=== PATIENT | female | born 1955 | race Caucasian/White ===

== ENCOUNTER 2025-10-25 13:35 | Outpatient (CLI) | payer OTHER, MEDICARE, SELFPAY ==
--- NOTE | 2025-10-25 14:33 | ECG_ITS ---
Test Date: 2025-10-25 14:50:17 Measurements Intervals [place] Rate: 57 P: 57 [place]: 141 QRS: 7 QRSD: 95 T: 22 QT: 429 QTc: 419 Interpretive Statements SINUS BRADYCARDIA CONSIDER INFERIOR INFARCT, AGE INDETERMINATE NONSPECIFIC T-WAVE ABNORMALITY- ANTERIOR LEADS BASELINE ARTIFACT- I, II, III, AVR, AVL, AVF ABNORMAL ECG No previous ECG available for comparison Electronically Signed On 10-25-2025 14:59:24 JELLY MAKER by Cristian Fox D.O.
[2025-10-25 15:41] LABS: Hematocrit 37.9 % (37.0-47.0); Hemoglobin 12.3 g/dL (12.0-15.0); Immature Granulocyte Percent A 0.4 % (0-0.5); Lymphocytes Absolute Auto 2.26 K/mm3 (0.9-3.2); Mean Corpuscular HGB Conc 32.5 g/dl (32-36); Mean Corpuscular Hemoglobin 30.2 pg (26-34); Mean Corpuscular Volume 93.1 fl (80-100); Nucleated Red Blood Cells Absolute Auto 0.000 K/mm3 (0.0-0.012); Nucleated Red Blood Cells Perc 0.0 % (0.0-0.2); Platelet Count Result 316 k/mm3 (150-375); Red Blood Count 4.07 M/mm3 (4.2-5.4); White Blood Count 8.0 K/mm3 (4.5-10.0)
[2025-10-25 15:49] LABS: Hemoglobin A1C 5.8 % (<5.7)
[2025-10-25 16:02] LABS: Albumin Level 4.0 g/dL (3.5-5.1); Anion Gap 7 mmol/L (4-12); Blood Urea Nitrogen 21 mg/dL (7-17); Calcium 9.0 mg/dL (8.4-10.2); Carbon Dioxide 25 mmol/L (22-30); Chloride 108 mmol/L (98-107); Estimated Glomerular Filt Rate > 60; Glucose 84 mg/dL (65-110); Potassium 4.1 mmol/L (3.4-5.0); Sodium 140 mmol/L (137-145)
--- OUTSIDE RECORDS SUMMARY | 2025-10-25 16:23 | XMS_ITS | Clinical Summary ---
Author Organization [facility] Address [address] [address] Care Team Providers Care Survey Field Technician Name Role Phone Jarett Josue MD Primary Care Provider [phone] Source Comments [facility],non-owned Affiliates and Associated Physician Practices is amultiple site organization consisting of ambulatory clinics and hospital sitesin [place], [place], [place] and [place]. This disclosure is being madepursuant to the Care Everywhere program and may not contain all information available regarding this patient. Last updated 18.[facility] Allergies Active Allergy Reactions Criticality Noted Date Comments Codeine 01/10/2017 Medications * Be aware that medications may not be up to date on this document. Alwaysverify current medications with the patient. benzonatate (TESSALON) 200 MG capsule Take 1 capsule by mouth 3 times daily as needed for Cough 30 capsule 12/05/2019 Active Social History Tobacco Use Types Packs/Day Years Used Date Smoking Tobacco: Never Smokeless Tobacco: Never Comments No Sex and Gender Information Value Date Recorded Sex Assigned at Not on file Legal Sex Female 9:02 AM COMPANY DANCER Gender Identity Not on file Sexual Orientation Not on file Last Filed Vital Signs Vital Sign Reading Time Taken Comments Blood Pressure 124/72 12/05/2019 8:59 AM COMPANY DANCER Pulse 64 12/05/2019 8:59 AM COMPANY DANCER Temperature 36.7 C (98.1 F) 12/05/2019 8:59 AM COMPANY DANCER Respiratory Rate 18 12/05/2019 8:59 AM COMPANY DANCER Oxygen Saturation 98% 12/05/2019 8:59 AM COMPANY DANCER Inhaled Oxygen Concentration - - Weight 73.9 kg (163 lb) 12/05/2019 8:59 AM COMPANY DANCER Height 167.6 cm (5' 6) 12/05/2019 8:59 AM COMPANY DANCER Body Mass Index 26.31 12/05/2019 8:59 AM COMPANY DANCER Plan of Treatment Health Maintenance Due Date Last Done Comments BONE DENSITY TESTING 1955 COLOGUARD (AGES 45-75) - COL ON CA SCREENING 1955 COLON MONITORING 1955 COLONOSCOPY - COLON CA SCREENING 1955 CT COLONOGRAPHY - COLON CA SCREENING 1955 Colorectal Cancer Screening 1955 FIT - COLON CA SCREENING 1955 FLEX SIG - COLON CA SCREENING 1955 LIPID TESTING 1955 MAMMOGRAM 1955 HEPATITIS C SCREENING 10/25/1971 DTAP/TDAP/TD VACCINES (1 - Tdap) 1972 PNEUMOCOCCAL VACCINE 50+ (1 of 1 - PCV) 2003 ZOSTER VACCINE (1 of 2) 2003 SCREENING FOR DIABETES 12/05/2019 DEPRESSION SCREENING 11/18/2024 COVID-19 VACCINE (1 - 2024-2 6 season) 2025 INFLUENZA VACCINE (#1) 2025 Respiratory Syncytial Virus (RSV) Vaccine Pt: or over 60 yrs (1 - 1-dose 75+ series) 2028 HEPATITIS B VACCINE Aged Out No longe r eligible based on patient's age to complete this topic HIB VACCINE Aged Out No longer eligi ble based on patient's age to complete this topic HPV VACCINE Aged Out No longer eligi ble based on patient's age to complete this topic MENINGOCOCCAL (Group B) VACC INE SHARED DECISION-MAKING Aged Out No longer eligibl e based on patient's age to complete this topic MENINGOCOCCAL GROUPS A/C/Y/W VACCINE Aged Out No longer eligible b ased on patient's age to complete this topic Insurance MEDICARE [facility] Care Teams Survey Field Technician Relationship Specialty Start Date End Date Jarett Josue MD [address] [place] [address] PCP - General Family Medicine 01/10/17
== END 2025-10-25 13:36 | disposition home or self-care (01) ==
PROVIDERS: PCP Family Medicine; Visit Provider Orthopaedic Surgery
DX: Z01.818 Encounter for other preprocedural examination (principal); M17.12 Unilateral primary osteoarthritis, left knee; R94.31 Abnormal electrocardiogram [ECG] [EKG]
CPT/HCPCS: 80048; 80307; 82040; 83036; 85025; 87081; 93005

== ENCOUNTER 2025-11-16 01:07 | Day surgery (SDC) | payer OTHER, MEDICARE, SELFPAY ==
--- NOTE | 2025-10-25 13:48 | PC.NURSE ---
[facility] has started construction of its new state of the art ER which will open Spring 2026. With this, we anticipate parking may be a challenge for some our surgical patients and families. Parking spaces are limited but are available for all Surgical, obstetrics, and ER patients sharing this lot. If you arrive and find you are having a hard time finding a parking space, please note that we understand the challenges, please drive around the hospital and park near Hospital Entrance 1. When you enter this entrance, you can ask a volunteer to direct or take you back to the surgical waiting area to check in. We appreciate everyone?s understanding of these expected challenges while we build for your future. Report to the Outpatient Waiting Room, entrance under the green pavilion located off [address], at time _6 AM on date _11/16/25 . Planned Procedure Time: __7:30 AM .? Time changes happen often and if your time is changed the preop area will call you the afternoon before. - You and your visitor will be asked to self-screen and do not enter if you have any COVID symptoms. Please call surgeon if you need to reschedule. - A mask is optional within the hospital at this time. Patients may have clear liquids (water, carbonated beverages, clear teas, apple juice) until 3 hours prior to surgery( 4:30 AM) with a maximum of 20 ounces. - No food from midnight until time of surgery and no smoking, or chewing tobacco (or any form of nicotine). No chewing gum, candy or mints. Take only the following medications with a SIP of water on the morning of surgery: ___LEVOTHYROXINE DO NOT STOP ANY OF YOUR OTHER PRESCRIPTION MEDICATIONS PRIOR TO SURGERY EXCEPT THE FOLLOWING Hold all vitamins and supplements for 3 days per anesthesiologist. Medications to discontinue per physician IBUPROFEN HOLD 7 DAYS PRE OP PER DR ROD Date to take last dose____11/08/25 Please no make-up, nail citizen of [place], hairspray, perfume, deodorant, or body powder the day of surgery.? No jewelry (including any body piercings) or valuables the day of surgery, leave them at home.? Please take a shower or bath the night before, or the morning of, surgery with an antibacterial soap.? Wear comfortable, loose fitting clothing.? Children are encouraged to wear pajamas. - Jewelry must be removed prior to entering the operating room.? Rings and piercings that are not removed may be cut off. - The hospital will not accept responsibility for valuables.? - Please leave all valuables, including medications, at home the day of surgery. If you are going home after surgery, a licensed substitute bus driver must drive you home.? - NO public transportation without another adult if you receive anesthesia. - We recommend that an adult stay with you for 24 hours following discharge. - We also recommend that you do not drive, make important decision, drink alcoholic beverages, or take any drugs that were not prescribed by your health care provider for at least 24 hours after your discharge time. For Pediatric surgeries, we recommend two adults accompany the child home. Follow any additional instructions given to you from your surgeon. VERBAL AND WRITTEN instructions given to _PATIENT and asked if any additional questions and then verbalized understanding. Patient advised to call surgeon office or pre surgery nurse liaison [phone] if any additional questions.
[2025-10-25 13:50] VITALS: BMI 26.2
[2025-10-25 14:28] VITALS: BP 157/70; PULSE 62; RESP 18; TEMP 37.1; O2SAT 98
--- NOTE | 2025-11-15 12:54 | PM.IMHP2 ---
H&P: HPI History of Present Illness Date/Time: 11/15/25 12:54 Chief Complaint: Left knee DJD he Narrative: 70-year-old female presents today for a left total knee arthroplasty. Patient has been having severe symptoms in the knee for years. She has been taking [id number] ibuprofen 600 mg on as-needed basis. She has had her right knee replaced other facilities in the past. 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 She declined cortisone injection, she does not feel it is going to help. She would rather proceed at this point with total knee arthroplasty. She is having rather severe pain on a daily basis. Physical exam: 70-year-old female alert pleasant. BMI is 26.6. Left knee range of motion is from 18-95 degrees. No obvious effusion. Moderate medial joint line tenderness and moderate pain with patellofemoral grind. There is no laxity to varus valgus stress. Hip range of motion is full without discomfort. There is no edema in lower extremities. Skin is all normal. 2+ posterior tibial artery pulse palpable. Absent dorsalis pedis pulse. X-rays: X-rays demonstrate advanced medial compartment osteoarthritis with mild varus alignment. Impression: 70-year-old female who has [id number] medial compartment osteoarthritis left knee. She also has severe limitations with range of motion. He has pain on daily basis which she is limiting her daily activities as well. Patient feels this point she would like to proceed with total knee arthroplasty rather than continue to live with the arthritis pain and disability. Surgical procedures well as the risks and complications were discussed in detail all questions were answered we will proceed. She will see her primary care doctor for pre-surgical clearance. She will avoid her ibuprofen and any other aspirin products 1 week prior to surgery. Her nasal swab was negative. Hemoglobin 12.3 and platelets were 316. Chem panel was all within normal limits creatinine 0.89. Patient's EKG showed bradycardia and possible inferior infarct. She is undergone a stress test which showed ejection fraction at 57% and normal left ventricular function. Stress portion showed no ischemia or defect. Patient has been cleared from cardiology. [facility], [facility] Surgical History Surgical History History of knee surgery right knee replaced History of hip surgery both hips replaced Family History Family History Sibling DVT (deep venous thrombosis) Social History Social History (Updated 10/29/25 @ 09:27 by Vania Calderon [facility]) Smoking status: Never smoker Additional smoking assessment comments: DENIES ANY FORM OF TOBACCO USE Alcohol intake: never Substance use: never Lack of Transportation: No Lack of Food: Never True Current Housing: I Have Housing Concerned About Future Housing: No Difficulty Paying Gas/Electric Bills: No Difficulty Paying for Meds: No Currently Unemployed: No Education: High School Diploma/GED Difficulty w/ Childcare or Family Care: No Living arrangements: with family Spiritual care concerns: No Meds Home Medications and Allergies Home Medications ?Medication ?Instructions ?Recorded ?Confirmed ?Type ibuprofen 200 mg tablet (Advil) 600 mg PO PRN 10/25/25 10/29/25 History levothyroxine 75 mcg tablet 75 mcg PO DAILY 10/25/25 10/29/25 History Allergies Allergy/AdvReac Type Severity Reaction Status Date / Time codeine AdvReac Mild Unknown Verified 10/29/25 08:30 prednisone AdvReac Mild Unknown Verified 10/29/25 09:30
[2025-11-16] VITALS (15 sets, daily range): BP systolic 125–151; BP diastolic 47–79; PULSE 51–96; RESP 10–18; TEMP 36.1–36.7; O2SAT 95–100; BMI 25.9
--- NOTE | ~2025-11-16 | XR_ITS ---
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 Subcutaneous gas with fluid and air in the joint are consistent with recent surgery. No evidence of periprosthetic fracture. IMPRESSION: 1. Recent left total knee arthroplasty. Reviewed, dictated and finalized at location O. 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
--- OUTSIDE RECORDS SUMMARY | 2025-11-16 01:09 | XMS_ITS | Clinical Summary ---
Author Organization [address] [address] Care Team Providers Care Weights And Measures Sealer Name Role Phone Jarett Josue MD Primary Care Provider [phone] Allergies No known active allergies Encounters Date Type Department Care Team Description 11/04/2025 8:15 AM GREASE MACHINE WORKER Ancillary Procedure [facility] Medical Group Cardiology at [address] [place] [id number] Abnormal EKG; Pre-operative cardiovascular examination 11/04/2025 Orders Only [facility] Medical [facility] Cardiology at [address] [address] Provider, MD Kim from Last 3 Months Social History Tobacco Use Types Packs/Day Years Used Date Smoking Tobacco: Never Assessed Personal Safety Answer Date Recorded Getting School Help Needed Not on file 01/30 Comments Unknown Sex and Gender Information Value Date Recorded Sex Assigned at Not on file Legal Sex Female 3:48 AM GREASE MACHINE WORKER Gender Identity Not on file Sexual Orientation Not on file Plan of Treatment Not on file Procedures Procedure Name Priority Date/Time Associated Diagnosis Comments NM MPI SPECT (REST AND/OR STRESS) MULTIPLE STUDIES Schedule Routine, Read Routine (OP Routine) 11/04/2025 9:57 AM GREASE MACHINE WORKER Abnormal EKG Pre-operative cardiovascular examination ECG 12-LEAD Routine 11/04/2025 9:04 AM GREASE MACHINE WORKER from Last 3 Months Results * NM MPI Spect (Rest And Stress) Multiple Studies (11/04/2025 9:57 AM GREASE MACHINE WORKER) Anatomical Region Laterality Modality Body N/A Electrocardiogra phy 11/04/2025 8:15 AM GREASE MACHINE WORKER Narrative 11/04/2025 1:57 PM GREASE MACHINE WORKER [facility] Medical Group Cardiology [address], [place] [address] [address], [place] [address], [place] [address] P:[phone] P:[phone] MPI Imaging Report Patient Name: VIDA GRACE : 1955 Study Date: 11/04/2025 8:15:00 AM Sex: F Tech: DILLON BARNEY Location: [facility] Provider: Height(Cm): 167.6 BSA: Weight(Kg): 72.2 Heart Rate: 126 BMI: 25.7 PHYSICIAN: Primary Care Physician: Dr. Josue. [facility] Physician: none. Stress Supervision: Jah Ortiz M.D. Stress Interpreting Physician: Jah Ortiz M.D. Myocardial Perfusion Imaging Interpreting Physician: Jah Ortiz M.D. PROCEDURES: Pharmacologic SPECT Report: Myocardial perfusion imaging with Tc99M Sestamibi SPECT at rest and stress post regadenoson (Lexiscan) infusion. INDICATIONS: Family Hx CAD, R94.31 Abnormal electrocardiogram (ECG) (EKG), and Z01.810 Encounter for preprocedural cardiovascular examination. FINDINGS: Procedural Findings: One day rest/stress was used. Tc99m Sestamibi injected IV at rest was 10.6 millicuries 32.2 millicuries of Tc99M Sestamibi injected IV during Lexiscan stress Lexiscan 0.4mg administered IV over 10 seconds. Patient had no symptoms during stress test. Baseline heart rate was 66 BPM Maximum Heart Rate Achieved was: 102 BPM Baseline blood pressure was 153/89 mmHg Post Stress Blood Pressure was 157/64 mmHg Termination: Protocol complete. Resting ECG: Normal sinus rhythm. Post ECG: No diagnostic ST changes. Arrhythmia: No arrhythmias seen. Perfusion Findings: Normal perfusion imaging. No definite fixed or reversible defects. Technical quality of study is excellent. Left ventricle cavity size at rest is normal. Left ventricle cavity size with stress is unchanged. A TID of 0.96 was automatically calculated. LV Function: Global left ventricular function is normal. Left ventricular ejection fraction is 57 %. CONCLUSIONS: Global left ventricular function is normal. Left ventricular ejection fraction is 57 %. Myocardial perfusion imaging is normal. Negative EKG portion of stress test. Attenuation correction utilized for the interpretation of this study. Electronically Signed By: Andre Ortiz MD 11/04/2025 12:47:23 PM GREASE MACHINE WORKER Electronically Signed By: Andre Ortiz MD 11/04/2025 12:47:23 PM GREASE MACHINE WORKER Procedure Note Andre Ortiz MD - 11/04/2025 [facility] Medical [facility] Cardiology [address] [address] [address] [id number], [place] [address] [address] [place] [address] P:[phone] P:[phone] MPI Imaging Report Patient Name: VIDA GRACE : 1955 Study Date: 11/04/2025 8:15:00 AM Sex: F Tech: SAVITA [facility] Location: [facility] Provider: Height(Cm): 167.6 BSA: Weight(Kg): 72.2 Heart Rate: 126 BMI: 25.7 PHYSICIAN: Primary Care Physician: Dr. Josue. [facility] Physician: none. StressSupervision: Jah Ortiz M.D. Stress Interpreting Physician: Jah Ortiz M.D. MyocardialPerfusion Imaging Interpreting Physician: Jah Ortiz M.D. PROCEDURES: Pharmacologic SPECT Report: Myocardial perfusion imaging with Tc99M Sestamibi SPECT at rest and stresspost regadenoson (Lexiscan) infusion. INDICATIONS: Family Hx CAD, R94.31 Abnormal electrocardiogram (ECG) (EKG), and Z01.810Encounter for preprocedural cardiovascular examination. FINDINGS: Procedural Findings: One day rest/stress was used. Tc99m Sestamibi injected IV at rest was 10.6 millicuries 32.2 millicuries of Tc99M Sestamibi injected IV during Lexiscan stress Lexiscan 0.4mg administered IV over 10 seconds. Patient had no symptoms during stress test. Baseline heart rate was 66 BPM Maximum Heart Rate Achieved was: 102 BPM Baseline blood pressure was 153/89 mmHg Post Stress Blood Pressure was 157/64 mmHg Termination: Protocol complete. Resting ECG: Normal sinus rhythm. Post ECG: No diagnostic ST changes. Arrhythmia: No arrhythmias seen. Perfusion Findings: Normal perfusion imaging. No definite fixed or reversible defects.Technical quality of study is excellent. Left ventricle cavity size at rest is normal. Leftventricle cavity size with stress is unchanged. A TID of 0.96 was automaticallycalculated. LV Function: Global left ventricular function is normal. Left ventricular ejectionfraction is 57 %. CONCLUSIONS: Global left ventricular function is normal. Left ventricular ejectionfraction is 57 %. Myocardial perfusion imaging is normal. Negative EKG portion of stress test. Attenuation correction utilized for the interpretation of this study. Electronically Signed By: Andre Ortiz MD 11/04/2025 12:47:23 PM GREASE MACHINE WORKER Electronically Signed By: Andre Ortiz MD 11/04/2025 12:47:23 PM GREASE MACHINE WORKER Provider Scanning [facility] PROCEDURES Final Result * ECG 12 lead (11/04/2025 9:04 AM GREASE MACHINE WORKER) us Historical Provider ECG ORDERABLES Final Res ult from Last 3 Months Insurance MEDICARE [facility] [employer] Care Teams Weights And Measures Sealer Relationship Specialty Start Date End Date Jarett Josue MD [address] [place] [id number] PCP - General Family Medicine 11/02/25
--- OUTSIDE RECORDS SUMMARY | 2025-11-16 01:09 | XMS_ITS | Clinical Summary ---
Author Organization [email or web address] Address [address] [place] [address] Care Team Providers Care Tare Worker Name Role Phone Jarett Josue MD Primary Care Provider [phone] Source Comments [email or web address],non-owned Affiliates and Associated Physician Practices is amultiple site organization consisting of ambulatory clinics and hospital sitesin [place], [place], [place] and [place]. This disclosure is being madepursuant to the Care Everywhere program and may not contain all information available regarding this patient. Last updated 18.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 Gender Identity Not on file Sexual Orientation Not on file Last Filed Vital Signs Vital Sign Reading Time Taken Comments Blood Pressure 124/72 12/05/2019 8:59 AM DISTRICT MANAGER PRIMARY CARE SALES Pulse 64 12/05/2019 8:59 AM DISTRICT MANAGER PRIMARY CARE SALES Temperature 36.7 C (98.1 F) 12/05/2019 8:59 AM DISTRICT MANAGER PRIMARY CARE SALES Respiratory Rate 18 12/05/2019 8:59 AM DISTRICT MANAGER PRIMARY CARE SALES Oxygen Saturation 98% 12/05/2019 8:59 AM DISTRICT MANAGER PRIMARY CARE SALES Inhaled Oxygen Concentration - - Weight 73.9 kg (163 lb) 12/05/2019 8:59 AM DISTRICT MANAGER PRIMARY CARE SALES Height 167.6 cm (5' 6) 12/05/2019 8:59 AM DISTRICT MANAGER PRIMARY CARE SALES Body Mass Index 26.31 12/05/2019 8:59 AM DISTRICT MANAGER PRIMARY CARE SALES Plan of Treatment Health Maintenance Due Date [...] age to complete this topic Insurance MEDICARE [facility] Care Teams Tare Worker Relationship Specialty Start Date End Date Jarett Josue MD [address] [place] [address] PCP - General Family Medicine 01/10/17
[2025-11-16] MEDS: ACETAMINOPHEN 500 MG TABLET 1000 MG PO (06:30)
[2025-11-16] MEDS: TRANEXAMIC ACID 1,000MG/ISO100 1,000 MG/100 ML BAG 200 MG IVPB (06:30)
[2025-11-16] MEDS: LACTATED RINGERS 1,000 ML 30 ML IV CONT ×2 (06:30→11:21)
[2025-11-16] MEDS: VANCOMYCIN HCL 1,000 MG in SODIUM CHLORIDE 0.9% IV 250 ML 250 MG IVPB ×2 (06:30→17:40)
--- NOTE | 2025-11-16 07:18 | WPDHPUPDATE1 ---
History and Physical Update Update Date/Time: 11/16/25 07:18 History and Physical has been reviewed, including an updated exam of the patient. There are NO changes in the patient's condition. Risks, benefits, and alternatives have been discussed and questions answered. Patient agrees to proceed with procedure.
--- NOTE | 2025-11-16 07:24 | P.PNAN_ITS ---
Anes - Initial Pre Proc Eval Procedure: Operation Date: 11/16/25 07:30 Proposed Procedures p Left Total Knee Arthroplasty - Chacorta Saravia MD Date/Time: 11/16/25 07:24 Surgeon: Chacorta Saravia MD Pre Op Diagnosis: O A Left Knee Patient Data Age: 70 Gender: F Height: 1.68 m Weight: 73 kg Last Vital Signs Temp 36.2 C L 11/16/25 07:13 Pulse 62 11/16/25 07:13 Resp 18 10/25/25 14:28 BP 142/79 H 11/16/25 07:13 Pulse Ox 99 11/16/25 07:13 O2 Del Method Room Air 11/16/25 07:13 Allergies Allergy/AdvReac Type Severity Reaction Status Date / Time codeine AdvReac Mild Unknown Verified 11/16/25 07:20 prednisone AdvReac Mild Unknown Verified 11/16/25 07:20 Home Medications ?Medication ?Instructions ?Recorded ?Confirmed ?Type ibuprofen 200 mg tablet (Advil) 600 mg PO PRN 10/25/25 11/16/25 History levothyroxine 75 mcg tablet 75 mcg PO DAILY 10/25/25 1 History Laboratory Tests 11/16/25 06:45 Blood Type Pending Antibody Screen Pending Patient hx anesthesia problems: none Family hx anesthesia problems: none Results Review: All pre-operative results and documents have been reviewed as part of the pre- operative evaluation. [facility] Surgical History Surgical History History of knee surgery right knee replaced History of hip surgery both hips replaced Family History Family History Sibling DVT (deep venous thrombosis) Social History Social History Smoking status: Never smoker Additional smoking assessment comments: DENIES ANY FORM OF TOBACCO USE Alcohol intake: never Substance use: never Lack of Transportation: No Lack of Food: Never True Current Housing: I Have Housing Concerned About Future Housing: No Difficulty Paying Gas/Electric Bills: No Difficulty Paying for Meds: No Currently Unemployed: No Education: High School Diploma/GED Difficulty w/ Childcare or Family Care: No Living arrangements: with family Spiritual care concerns: No Anes - Eval Final PreProcedure Day of Procedure 11/16/25 07:24 Patient weight: normal Heart: regular rate and rhythm Lungs: clear to auscultation Airway: Mallampati scale class II Neurological: alert and oriented Last oral intake: >/= 8 hours ASA classification: II Emergent: no Anesthetic plan: proceed Anesthesia type and monitoring: general ETT and standard monitoring Results Review: All pre-operative results and documents have been reviewed as part of the pre-operative evaluation. Informed Consent: The patient's anesthetic plan and its attendant risks and benefits were discussed with the patient/family/POA. Questions were solicited and answers provided to the satisfaction of the patient/family/POA.
[2025-11-16] MEDS: ceFAZolin 2 GM in SODIUM CHLORIDE 0.9% IV 50 ML 100 ML IVPB ×3 (07:30→22:33)
[2025-11-16] MEDS: SODIUM CHLORIDE 0.9% IV 37.7 ML, MORPHINE SULFATE INJ (*CRX) 2 MG, ROPivacaine HCL 1% 2... INFILTRATE (08:06)
[2025-11-16] MEDS: KETOROLAC 15 MG/ML VIAL (*BKC) 7.5 MG IV PUSH ×3 (10:28→22:34)
[2025-11-16] MEDS: TRANEXAMIC ACID 1,000 MG/10 ML AMPUL 1000 MG IV PUSH (10:29)
[2025-11-16] MEDS: fentaNYL CITRATE INJ (*CRX) 100 MCG/2 ML VIAL 25 MCG IV PUSH ×8 (11:34→12:30)
--- NOTE | 2025-11-16 11:35 | PM.OP ---
Procedure Note - Brief Procedure Note - Brief Date of procedure: 11/16/25 O A Left Knee Procedure performed: Left total knee arthroplasty Surgeon: Scott Conley PA-C Findings: 70-year-old female underwent left total knee arthroplasty on 11/16. I was involved in the procedure including positioning the patient on the OR table and 1st assisting through the time of surgery. Total time spent was 3-1/2 hours
--- NOTE | 2025-11-16 11:39 | P.OP_ITS ---
Procedure Note - Detailed Date of Procedure 11/16/25 Pre-op Diagnosis O A Left Knee Post-op Diagnosis Same Procedure Performed Left total knee replacement Surgeon Chacorta Saravia MD Social Sciences Professor felisha Anesthesia General Description of Procedure Patient was brought to the operating room and general anesthesia was administered. She received 2 g of Ancef weight based vancomycin 1 g of TXA preoperatively. Under anesthesia we could passively flex her knee to about 120 which met hard stop and she continued to exhibit a 15 degree fixed flexion contracture. The left leg was prepped and draped in usual fashion. Limb was exsanguinated and tourniquet elevated to 275 mm initially but than 300. A 7 in longitudinal midline incision was used and a vastus medialis splitting approach utilized splitting the vastus medialis at the level of the superior pole patella. Partial excision of infrapatellar fat pad performed quadriceps synovectomy carried out. The patella had large osteophytes and some degree of deformity due to inferior central osteophyte overgrowth and I felt patellar resu rfacing would be best. It measured 23 mm in thickness and was cut to 15 mm and a protector cap applied. Bone quality was only fair. Next a guide lizbeth was inserted on femoral canal after aspiration of canal contents using the 5 degree valgus cutting bushing, 9 mm of bone removed the distal femur. There were remarkably large osteophytes surrounding the trochlea and medial femoral condyle which were debrided. Conservative removal of medial tibial osteophyte was performed. Next the tibia was cut. We made a skim cut the low point of the medial tibial plateau. Meniscal remnants were excised and PCL recessed from the femur. Flexion gap was still too tight. An additional 2-1/2 mm of bone was removed from the tibial plateau. Alignment confirmed to be perpendicular to the axis of the tibia. With this carried out we could insert the 8 mm spacer medially at 90? of flexion and 10 laterally. The femoral sizing guide was applied to the distal femur set at 3? of external rotation which matched [place] line. Posterior referencing pinholes were placed. We had to flex the distal femoral cut a little bit to get the 65 anterior cut to be flush the anterior cortex AP and chamfer cuts were made. However the 65 was about 3 mm wide. Tibia was sized to a 71 which fit line to line posterolateral to anteromedial and this was punched. The knee was trialed with the 10 insert. This seemed appropriate in flexion with 1 mm lateral opening 2 mm medial opening at 90? appropriate anterior posterior drawer. The knee lacked extension due to excessive tightness medially and relative looseness laterally. Posterior femoral osteophyte was removed and posteromedial tibial osteophytes removed. This left us with about 5 or 6? flexion contracture the mm opening medially. Posterior capsule release was performed from the distal femur and this allowed the knee to come out to near full extension but still with a positive bounce with no play medially. It was clear that at most we would need another mm bone of the distal femur and this would not result in the femoral trial being the correct with so at this point we elected to downsize the femur. To prevent notching we had to slope the distal femoral cut a little bit more and this gave the anterior cut using the 62.5 cutting block ending up flush with the anterior cortex without notching. Her bone was softer than average and I therefore did not wish to notch. With this performed on trialing the 10 was a little bit loose in the 11 was perfect at 90? gravity flexion to 135. There continued to be a positive bounce and extension with less than a mm of medial opening 4 mm of lateral opening. Therefore I elected to resect 1 mm of bone from the medial femoral condyle transitioning this to the lateral femoral condyle to create a 4? valgus cut relative to the axis of the femur this was confirmed with the 4 degree wing on the intramedullary lizbeth. Chamfer cuts revisited and on read trialing now the knee came out to full extension with negative bounce and with the arthrotomy towel clipped together there is still a mm of medial opening and negative bounce. Lateral opening was 3 mm in extension and appropriate AP stab ility throughout range of motion. Lug holes were drilled through the femoral trial. The patella was sized to a 34 and lug holes drilled and composite thickness with the 7.8 mm thick trial was 23 mm. Patellar tracking was perfect throughout range of motion. We had put the tourniquet down earlier at 90 minutes at this time the limb was re-exsanguinated tourniquet elevated to 300 mmHg in the bony surfaces thoroughly irrigated. A step drill was used to make multiple perforations in the tibial plateau and distal femur bone surfaces thoroughly irrigated and dried. Two batches of methylmethacrylate 1 the gentamicin powder were used and immediately applied after mixing to the 71 tibial component vanguard and the 62.5 the CR left femoral component. Cement applied the tibial plateau pressurized tibial component fully seated cement applied the femur the femoral component fully seated the knee brought into extension with a 12 mm 5 in 1 insert for cement pressurization. Thirty-four thin patella cemented. Tourniquet was released total tourniquet time approximately 105 minutes. After cement hardening excess cement was sought for removed and hemostasis was achieved. We trialed with the 11 insert and again this gave the same range of motion stability characteristics as described above. The real 11 was placed without difficulty locked with a locking pin range of motion stability patellar tracking reconfirmed. Local anesthetic cocktail injected into the periarticular soft tissues. Arthrotomy was closed with 2. Vicryl suture and 1. Unidirectional barbed Stratafix suture and 1. Vicryl in the vastus split. [place] flexion after arthrotomy closure 135 full extension with negative bounce. Skin closed with 2 subcutaneous Vicryl 3-0 subcuticular Monocryl and glue. The EBL was 250 cc. Two additional g of Ancef and 1 g TXA given time wound closure. There were no complications. She was transferred postop recovery room stable condition. [facility] Billing Surgery - Charge Forward: Surgery Billing (Left total knee replacement)
[2025-11-16] MEDS: HYDROmorphone HCL INJ (*CRX) 1 MG/ML SYR 0.5 MG IV PUSH (12:36)
[2025-11-16] MEDS: ACETAMINOPHEN 325 MG TABLET 650 MG PO (14:05)
[2025-11-16] MEDS: oxyCODONE HCL (*CRX) 5 MG TAB IR PO ×3 (14:05→21:01)
[2025-11-16] MEDS: SODIUM CHLORIDE 0.9% IV 1,000 ML 125 ML IV CONT (14:06)
[2025-11-16] MEDS: ONDANSETRON INJ 4 MG/2 ML VIAL IV PUSH (15:27)
[2025-11-16] MEDS: SENNA/DOCUSATE SODIUM TABLET 2 TAB PO (17:38)
[2025-11-16] MEDS: CALCIUM/VITAMIN D 500 MG/5 MCG (200 I.U.) TABLET PO (17:38)
[2025-11-16] MEDS: FAMOTIDINE 20 MG TABLET PO (21:01)
[2025-11-17 04:00] VITALS: BP 119/51; PULSE 67; RESP 18; TEMP 36.6; O2SAT 98
[2025-11-17] MEDS: VANCOMYCIN HCL 1,000 MG in SODIUM CHLORIDE 0.9% IV 250 ML 250 MG IVPB (05:34)
[2025-11-17] MEDS: ACETAMINOPHEN 325 MG TABLET 650 MG PO ×3 (05:34→11:34)
[2025-11-17] MEDS: LEVOTHYROXINE SODIUM 75 MCG TABLET PO (05:34)
[2025-11-17] MEDS: oxyCODONE HCL (*CRX) 5 MG TAB IR PO ×3 (05:35→11:33)
[2025-11-17 06:28] LABS: Hematocrit 30.9 % (37.0-47.0); Hemoglobin 9.7 g/dL (12.0-15.0); Immature Granulocyte Percent A 0.3 % (0-0.5); Lymphocytes Absolute Auto 2.22 K/mm3 (0.9-3.2); Mean Corpuscular HGB Conc 31.4 g/dl (32-36); Mean Corpuscular Hemoglobin 29.8 pg (26-34); Mean Corpuscular Volume 95.1 fl (80-100); Nucleated Red Blood Cells Absolute Auto 0.000 K/mm3 (0.0-0.012); Nucleated Red Blood Cells Perc 0.0 % (0.0-0.2); Platelet Count Result 179 k/mm3 (150-375); Red Blood Count 3.25 M/mm3 (4.2-5.4); White Blood Count 11.6 K/mm3 (4.5-10.0)
[2025-11-17 06:42] LABS: Anion Gap 3 mmol/L (4-12); Blood Urea Nitrogen 16 mg/dL (7-17); Calcium 8.7 mg/dL (8.4-10.2); Carbon Dioxide 26 mmol/L (22-30); Chloride 106 mmol/L (98-107); Estimated CRCL calculation 51 ml/min; Estimated Glomerular Filt Rate > 60; Glucose 95 mg/dL (65-110); Potassium 3.8 mmol/L (3.4-5.0); Sodium 135 mmol/L (137-145)
--- NOTE | 2025-11-17 07:59 | P.PNOP_ITS ---
Subjective Subjective Date/Time Seen: 11/17/25 07:59 Interval history: Postop day 1 patient is alert. She is afebrile vital signs are stable. Morning labs are noted. Patient was up yesterday with therapy walking around. She was also overnight walking to the restroom. Overall pain is well controlled. Dressing is intact and dry. She has some mild ecchymosis around the knee. Mild swelling to the knee. No swelling in lower extremities. Neurovascularly she is intact. She is able do a straight leg raise in the bed this morning without difficulty. Overall patient is doing well. Will plan have the patient work with therapy this morning and once IV antibiotics have been completed she will be discharged to home. Objective Data Vital Signs Vital Signs: Vital Signs - 24 hr 11/16/25 11:21 11/16/25 11:30 11/16/25 11:45 Temperature 98.0 F Pulse Rate 66 63 66 Respiratory Rate 10 L 12 15 Blood Pressure 129/66 143/69 H 146/76 H Pulse Oximetry 95 96 99 Oxygen Delivery Simple Face Mask Simple Face Mask Simple Face Mask Oxygen Flow Rate 8 8 8 11/16/25 12:00 11/16/25 12:15 11/16/25 12:30 Temperature Pulse Rate 60 61 64 Respiratory Rate 12 14 18 Blood Pressure 130/70 151/65 H 148/78 H Pulse Oximetry 95 100 100 Oxygen Delivery Room Air Nasal Cannula Nasal Cannula Oxygen Flow Rate 2 2 11/16/25 12:45 11/16/25 13:00 11/16/25 13:03 Temperature 97.9 F Pulse Rate 57 L 51 L 96 Respiratory Rate 14 14 14 Blood Pressure 125/58 L 131/59 L 134/56 L Pulse Oximetry 99 99 96 Oxygen Delivery Nasal Cannula Nasal Cannula Oxygen Flow Rate 2 2 11/16/25 13:18 11/16/25 13:48 11/16/25 14:48 Temperature 97 F L 97.3 F L 97 F L Pulse Rate 58 L 51 L 58 L Respiratory Rate 14 16 14 Blood Pressure 129/61 147/55 H 142/56 H Pulse Oximetry 98 96 100 Oxygen Delivery Oxygen Flow Rate 11/16/25 15:07 11/16/25 15:23 11/16/25 20:00 Temperature 97.3 F L Pulse Rate 60 Respiratory Rate 18 Blood Pressure 150/58 H Pulse Oximetry 96 Oxygen Delivery Room Air Room Air Oxygen Flow Rate 11/16/25 23:45 11/17/25 04:00 Temperature 97.9 F 97.8 F Pulse Rate 61 67 Respiratory Rate 16 18 Blood Pressure 132/47 L 119/51 L Pulse Oximetry 99 98 Oxygen Delivery Oxygen Flow Rate Intake/Output Intake/Output: Intake & Output 11/14/25 11/15/25 11/16/25 11/17/25 23:59 23:59 23:59 23:59 Intake Total 1420 Balance 1420 Meds/Results Medications: Active Medications Generic Name Dose Route Start Last Admin Trade Name Freq PRN Reason Stop Dose Admin Acetaminophen 650 mg 11/16/25 13:30 11/17/25 05:34 Acetaminophen 325 Mg Tablet PO 650 mg Q4H [facility] Administration Apixaban 2.5 mg 11/17/25 09:00 Apixaban 2.5 Mg Tablet PO 11/28/25 21:01 Q12HR [facility] Calcium Carbonate 500 mg 11/16/25 17:00 11/16/25 17:38 Calcium/Vitamin D 500 Mg/5 Mcg (200 I.U.) Tablet PO 500 mg BIDWM [facility] Administration Cefdinir 300 mg 11/17/25 12:00 Cefdinir 300 Mg Capsule PO Q12HR [facility] Celecoxib 200 mg 11/17/25 08:00 Celecoxib 200 Mg Capsule PO DAILY@0800 [facility] Diphenhydramine HCl 25 mg 11/16/25 13:03 Diphenhydramine Hcl Inj 50 Mg/Ml Vial IV PUSH Q6H PRN Itching Famotidine 20 mg 11/16/25 21:00 11/16/25 21:01 Famotidine 20 Mg Tablet PO 20 mg Q12HR [facility] Administration Hydromorphone HCl 0.5 mg 11/16/25 12:24 11/16/25 12:36 Hydromorphone Hcl Inj (*Crx) 1 Mg/Ml Syr IV PUSH 0.5 mg Q5M PRN Administration pain rated 7-10 Levothyroxine Sodium 75 mcg 11/17/25 06:30 11/17/25 05:34 Levothyroxine Sodium 75 Mcg Tablet PO 75 mcg DAILY@0630 [facility] Administration Melatonin 5 mg 11/16/25 21:00 11/16/25 22:36 Melatonin 5 Mg Tablet PO Not Given HS [facility] Morphine Sulfate 2 mg 11/16/25 13:03 Morphine Sulfate (*Crx) 4 Mg/Ml Inj IV PUSH Q2H PRN Breakthrough Pain Rated 4-6 or NPO Naloxone HCl 0.1 mg 11/16/25 13:03 Naloxone Hcl 0.4 Mg/Ml Vial IV PUSH Q2M PRN Opiate Reversal Ondansetron HCl 4 mg 11/16/25 13:03 11/16/25 15:27 Ondansetron Inj 4 Mg/2 Ml Vial IV PUSH 4 mg Q4H PRN Administration Nausea And Vomiting Oxycodone HCl 5 mg 11/16/25 13:03 11/17/25 05:35 Oxycodone Hcl (*Crx) 5 Mg Tab Ir PO 5 mg Q4H BORIS Administration Oxycodone HCl 5 mg 11/16/25 13:03 Oxycodone Hcl (*Crx) 5 Mg Tab Ir PO Q4H PRN Pain Rated 7-10 Polyethylene Glycol 17 gm 11/17/25 09:00 Polyethylene Glycol 3350 17 Gm Powd.Pack PO QAM BORIS Senna/Docusate Sodium 2 tab 11/16/25 17:00 11/16/25 17:38 Senna/Docusate Sodium Tablet PO 2 tab BID BORIS Administration Radiology Results: ITS Impressions Knee X-Ray 11/16/25 11:23 IMPRESSION: 1. Recent left total knee arthroplasty. Labs Labs: Laboratory Results - last 24 hr 11/17/25 05:53 WBC 11.6 H RBC 3.25 L Hgb 9.7 L Hct 30.9 L MCV 95.1 MCH 29.8 MCHC 31.4 L RDW 13.7 Plt Count 179 MPV 10.3 Immature Gran % (Auto) 0.3 Neut % (Auto) 62.5 Lymph % (Auto) 19.2 [place] % (Auto) 17.0 H Eos % (Auto) 0.7 Baso % (Auto) 0.3 Lymph # (Auto) 2.22 [place] # (Auto) 2.0 H Eos # (Auto) 0.1 Baso # (Auto) 0.0 Abs Immat Gran (auto) 0.04 H Absolute Neuts (auto) 7.2 H Absolute Nucleated RBC 0.000 Nucleated RBC % 0.0 Sodium 135 L Potassium 3.8 Chloride 106 Carbon Dioxide 26 Anion Gap 3 L BUN 16 Creatinine 0.82 Estim Creat Clear Calc 51 Estimated GFR > 60 Glucose 95 Calcium 8.7 Vitamin D 25-Hydroxy 32.6
[2025-11-17] MEDS: ceFAZolin 2 GM in SODIUM CHLORIDE 0.9% IV 50 ML 100 ML IVPB (08:07)
[2025-11-17] MEDS: SENNA/DOCUSATE SODIUM TABLET 2 TAB PO (09:19)
[2025-11-17] MEDS: CALCIUM/VITAMIN D 500 MG/5 MCG (200 I.U.) TABLET PO (09:20)
[2025-11-17] MEDS: CELECOXIB 200 MG CAPSULE PO (09:20)
[2025-11-17] MEDS: FAMOTIDINE 20 MG TABLET PO (09:20)
[2025-11-17] MEDS: APIXABAN 2.5 MG TABLET PO (09:20)
[2025-11-17 10:48] VITALS: BP 141/57; PULSE 65; RESP 16; TEMP 36.4; O2SAT 98
[2025-11-17] MEDS: CEFDINIR 300 MG CAPSULE PO (11:33)
== END 2025-11-17 12:20 | disposition home or self-care (01) ==
LOC: ANHSURGERY 05:56 → ANH3MEDSUR 13:12
PROVIDERS: Physician Assistant Surgical; PCP Family Medicine; Visit Provider Orthopaedic Surgery
PROC: (CPT 27447; principal; 2025-11-16 07:30)
DX: M17.12 Unilateral primary osteoarthritis, left knee (principal)
CPT/HCPCS: 27447; 36415; 73560; 80048; 82306; 85025; 86850; 86900; 86901; 97110; 97116; 97161; 97165; 97530; 97535; J0690; A9270; C1713; C1776; J0166; J1100; J1171; J1885; J2250; J2270; J2405; J2704; J2795; J3010; J3290; J3373; J7030; J7050; J7120